=== PATIENT | female | born 1955 | race Two or more races ===

== ENCOUNTER 2023-05-02 06:28 | Day surgery (SDC) | payer OTHER ==
[~2023-05-02] VITALS: Ht 152.4 cm; Wt 68.0 kg
[~2023-05-02 06:28] MED LIST: ALENDRONATE SOD70 MG PO; AMOX1TAB5 PO; ANASTROZOLE1 MG PO; CHILDREN'S ASPI81 MG PO; COZAAR100 MG PO; METFORMIN HCL1000 M2 PO; PEPCID40 MG PO; ZOCOR20 MG PO
== END 2023-05-02 17:50 | disposition home or self-care (01) ==
LOC: CIR.AMB 06:28
PROVIDERS: ATTEND Surgery
DX: C50.412 Malignant neoplasm of upper-outer quadrant of left female breast (principal); C77.3 Secondary and unspecified malignant neoplasm of axilla and upper limb lymph nodes; I10 Essential (primary) hypertension; Z20.822 Contact with and (suspected) exposure to COVID-19